=== PATIENT | female | born 1945 | race Caucasian/White ===

== ENCOUNTER 2018-07-12 18:03 | Inpatient (IN) | payer MEDICARE, MEDICAID ==
[~2018-07-12] VITALS: Ht 160 cm; Wt 63.0 kg
--- NOTE | 2018-07-12 18:06 | NUR ---
Hx pneumonia recently and on levaquin. fever, body aches, chills. NEB TREATMENT GIVEN PER EMS WITH [facility].
[2018-07-12] MEDS ORDERED: normal saline 1000ML IV soln IVB ONE (18:20)
[2018-07-12 18:53] LABS: BASOPHILS % (AUTO) 0.1 % (0-1); EOSINOPHILS % (AUTO) 0 % (0-6); HEMATOCRIT 40.3 % (35.0-45.0); HEMOGLOBIN 13.8 g/dl (12.0-16.0); LYMPHOCYTES # (AUTO) 1.2 X10'3 (1.1-4.8); LYMPHOCYTES % (AUTO) 22.2 % (21-51); MEAN CORPUSCULAR HEMOGLOBIN 31.2 PG (27.0-31.0); MEAN CORPUSCULAR HGB CONC 34.3 g/dL (33.0-36.5); MEAN CORPUSCULAR VOLUME 91.1 FL (78-98); MONOCYTES # (AUTO) 0.1 X10'3 (0-0.9); NEUTROPHILS # (AUTO) 4.3 X10'3 (1.8-7.7); NEUTROPHILS % (AUTO) 75.7 % (42-75); PLATELET COUNT 142 X10'3 (140-440); RED BLOOD COUNT 4.43 X10'6 (4.20-5.60); RED CELL DISTRIBUTION WIDTH 14.1 % (11.5-14.5); WHITE BLOOD COUNT 5.6 X10'3 (4.5-11.0)
[2018-07-12 18:57] LABS: ALANINE AMINOTRANSFERASE 14 U/L (12-78); ALBUMIN 3.4 G/DL (3.4-5.0); ALKALINE PHOSPHATASE 81 IU/L (46-116); ANION GAP 12 (8-16); ASPARTATE AMINO TRANSFERASE 15 U/L (10-37); BILIRUBIN,TOTAL 0.6 MG/DL (0.1-1.0); BLOOD UREA NITROGEN 13 MG/DL (7-18); BUN/CREATININE RATIO 13.4 (6.6-38.0); CALCIUM 9.4 MG/DL (8.5-10.1); CHLORIDE 101 MMOL/L (99-107); CREATININE 0.97 MG/DL (0.40-0.90); GLUCOSE 129 MG/DL (70-104); POTASSIUM 3.9 MMOL/L (3.5-5.1); SODIUM 138 MMOL/L (135-145); TOTAL CARBON DIOXIDE 24.9 MMOL/L (24-32); TOTAL PROTEIN 6.8 G/DL (6.4-8.2); eGFR 56 ML/MIN
--- NOTE | 2018-07-12 18:57 | NUR ---
JOVANNY dc'd a flu swab due to a negative result prior to today per the patient.
[2018-07-12 19:03] LABS: PARTIAL THROMBOPLASTIN TIME 25 SECONDS (22-32); PROTHROMBIN TIME 10.4 SECONDS (9.0-12.0)
[2018-07-12] MEDS ORDERED: FENT1PAT13 TOP (19:21)
[2018-07-12] MEDS ORDERED: TRAZ-219 PO (19:21)
[2018-07-12] MEDS ORDERED: LISI40TA4 PO (19:21)
[2018-07-12] MEDS ORDERED: LEVO500T2 PO (19:21)
[2018-07-12] MEDS ORDERED: PER10325T PO (19:21)
[2018-07-12] MEDS ORDERED: HYDR-4070 PO (19:21)
[2018-07-12] MEDS ORDERED: PRED5TAB PO (19:21)
[2018-07-12] MEDS ORDERED: TRAZ-218 PO (19:21)
[2018-07-12] MEDS ORDERED: LEVO75TA PO (19:21)
[2018-07-12] MEDS ORDERED: ATOR10TA87 PO (19:21)
--- NOTE | 2018-07-12 19:23 | NUR ---
Pt refused to have the flu swab done.
[2018-07-12 19:52] LABS: CLARITY,URINE CLEAR (Clear); COLOR,URINE YELLOW (Yellow); GLUCOSE, URINE NEGATIVE (Neg); KETONES,URINE NEGATIVE (Neg); LEUKOCYTE ESTERASE ,URINE SMALL (Neg); NITRITES, URINE NEGATIVE (Neg); OCCULT BLOOD,URINE NEGATIVE (Neg); PH,URINE 8.5 (4.8-8.0); PROTEIN,URINE NEGATIVE (Neg); UROBILINOGEN,URINE 0.2 E.U/dL (0.2-1.0)
[2018-07-12 20:17] LABS: UA COLLECTION TYPE CLN CATCH MIDSTREAM
[2018-07-12 20:42] LABS: RBC,URINE NONE SEEN /HPF (0-2)
[2018-07-12 20:43] LABS: BACTERIA,URINE FEW /HPF (Neg); MUCUS STRANDS NONE SEEN /LPF (Neg); SQUAMOUS EPITHELIAL CELL,UR FEW /LPF (FEW); YEAST FEW /HPF (NEGATIVE)
[2018-07-12] MEDS ORDERED: acetaminophen 325mg tablet PO PRN (22:40)
[2018-07-12] MEDS ORDERED: CefTRIAXone 2gm/D5W 50ml 50 ML IV ONE (22:40)
[2018-07-12] MEDS ORDERED: mag hydrox/Alum hydrox/simeth 30ml oral suspension PO PRN (22:40)
[2018-07-12] MEDS ORDERED: ondansetron/PF 4mg/2ml inj IV PRN (22:40)
[2018-07-12] MEDS ORDERED: magnesium hydroxide 30ml (MOM) UD suspension PO PRN (22:40)
[2018-07-12] MEDS ORDERED: azithromycin 250mg tablet PO ONE (22:55)
[2018-07-12] MEDS: normal saline 1000ml 1,000 ML IV SCH (23:12)
[2018-07-12 23:20] LABS: D-DIMER 4.52 MG/L FEU (0-0.50)
[2018-07-12] MEDS ORDERED: FENTANYL CADD WASTE DOCUMENT MC ONE (23:20)
[2018-07-13] VITALS: BP 129/72
[2018-07-13] MEDS ORDERED: traZODone 150mg tablet PO ONE (00:25)
[2018-07-13] MEDS: normal saline 1000ml 1,000 ML IV SCH ×3 (00:51→20:31)
[2018-07-13 05:22] LABS: ALANINE AMINOTRANSFERASE 11 U/L (12-78); ALBUMIN 2.8 G/DL (3.4-5.0); ALKALINE PHOSPHATASE 63 IU/L (46-116); ANION GAP 7 (8-16); ASPARTATE AMINO TRANSFERASE 13 U/L (10-37); BILIRUBIN,TOTAL 0.4 MG/DL (0.1-1.0); BLOOD UREA NITROGEN 16 MG/DL (7-18); BUN/CREATININE RATIO 19.5 (6.6-38.0); CALCIUM 8.6 MG/DL (8.5-10.1); CHLORIDE 104 MMOL/L (99-107); CREATININE 0.82 MG/DL (0.40-0.90); GLUCOSE 85 MG/DL (70-104); POTASSIUM 3.4 MMOL/L (3.5-5.1); SODIUM 140 MMOL/L (135-145); TOTAL CARBON DIOXIDE 29.5 MMOL/L (24-32); TOTAL PROTEIN 5.7 G/DL (6.4-8.2); eGFR 68 ML/MIN
[2018-07-13 05:55] LABS: BASOPHILS % (AUTO) 0.4 % (0-1); EOSINOPHILS % (AUTO) 0.4 % (0-6); HEMATOCRIT 34.5 % (35.0-45.0); HEMOGLOBIN 11.7 g/dl (12.0-16.0); LYMPHOCYTES # (AUTO) 2.4 X10'3 (1.1-4.8); LYMPHOCYTES % (AUTO) 37.4 % (21-51); MEAN CORPUSCULAR HEMOGLOBIN 31.3 PG (27.0-31.0); MEAN CORPUSCULAR VOLUME 92.1 FL (78-98); MEAN PLATELET VOLUME 8.6 FL (7.4-10.4); MONOCYTES # (AUTO) 0.5 X10'3 (0-0.9); MONOCYTES % (AUTO) 7.3 % (2-12); NEUTROPHILS # (AUTO) 3.5 X10'3 (1.8-7.7); NEUTROPHILS % (AUTO) 54.5 % (42-75); PLATELET COUNT 125 X10'3 (140-440); RED BLOOD COUNT 3.74 X10'6 (4.20-5.60); RED CELL DISTRIBUTION WIDTH 14.1 % (11.5-14.5); WHITE BLOOD COUNT 6.4 X10'3 (4.5-11.0)
--- NOTE | 2018-07-13 06:10 | NUR ---
Patient in room [facility]. I have received report from PIYUSH Adams and had the opportunity to ask questions and assume patient care.
[2018-07-13 06:30] VITALS: BP 104/63
--- NOTE | 2018-07-13 06:36 | NUR ---
Problems reprioritized. Patient report given, questions answered & plan of care reviewed with Alisia RN. Patient had just returned from restroom, appears in no distress.
--- NOTE | 2018-07-13 07:40 | NUR ---
Dr Chaves notified of decreased BP ie 104/63 & has hydralazine 50mg & lisinopril 40mg RX'd. Requested to hold both meds. Awaiting response.
[2018-07-13] MEDS ORDERED: magnesium 2GM in 50ml NS 50 ML IV PRN (07:45)
[2018-07-13] MEDS ORDERED: magnesium 4gm in 100ml NS 100 ML IV PRN ×2 (07:45→10:00)
[2018-07-13] MEDS ORDERED: potassium Cl 40MEQ/NS 500ml 500 ML IV PRN ×4 (07:45→10:00)
[2018-07-13] MEDS ORDERED: magnesium Cl slow-release 64mg tablet PO PRN ×2 (07:45→10:00)
[2018-07-13] MEDS ORDERED: potassium Cl 20 mEq SR tablet PO PRN ×2 (07:45→10:00)
[2018-07-13] MEDS: hydrALAZINE 25 MG tablet PO SCH ×2 (07:52→20:11)
[2018-07-13] MEDS: atorvastatin 10mg tablet PO SCH (08:00)
[2018-07-13] MEDS: levoTHYROXINE 75mcg tablet PO SCH (08:00)
[2018-07-13] MEDS ORDERED: lisinopril 20mg tablet PO SCH (08:00)
[2018-07-13] MEDS: predniSONE 5mg tablet PO SCH (08:00)
[2018-07-13] MEDS: potassium Cl 20 mEq SR tablet PO PRN ×4 (08:01→20:12)
[2018-07-13] MEDS: heparin, porcine 5000 units/ml vial SQ SCH ×2 (08:02→20:13)
[2018-07-13 08:03] VITALS: BP 146/68
[2018-07-13] MEDS ORDERED: iohexol 350MG/ML 100ml bottle IV ONE (10:25)
[2018-07-13] MEDS: ipratropium/albuterol 3ml nebule NEB SCH ×4 (11:00→23:06)
[2018-07-13 11:30] VITALS: BP 129/61
[2018-07-13] MEDS: azithromycin 250mg tablet PO SCH (14:19)
--- NOTE | 2018-07-13 18:05 | NUR ---
Problems reprioritized. Patient report given, questions answered & plan of care reviewed with Sagrario RN.
[2018-07-13 19:30] VITALS: BP 165/77
[2018-07-13] MEDS: lactobacillus rhamnosus 10,000 MMU CELLS/CAPSULE PO SCH (20:10)
[2018-07-13] MEDS: CefTRIAXone/D5W-Rocephin 1gm 50 ML IV SCH (20:13)
[2018-07-13] MEDS: oxyCODONE/APAP 10/325mg tablet PO PRN (20:19)
[2018-07-13] MEDS ORDERED: non-formulary drug (Trazodone HCl 1 TAB) PO SCH (21:00)
[2018-07-13] MEDS ORDERED: traZODone 50mg tablet PO SCH (21:00)
[2018-07-13] MEDS ORDERED: fentaNYL 100MCG/hour patch.TD72 TD SCH (22:50)
[2018-07-14] VITALS: BP 113/53
[2018-07-14] MEDS: ipratropium/albuterol 3ml nebule NEB SCH ×4 (02:58→14:30)
[2018-07-14 05:15] LABS: BASOPHILS % (AUTO) 0.3 % (0-1); EOSINOPHILS % (AUTO) 0.7 % (0-6); HEMATOCRIT 32.3 % (35.0-45.0); HEMOGLOBIN 10.8 g/dl (12.0-16.0); LYMPHOCYTES # (AUTO) 2.3 X10'3 (1.1-4.8); LYMPHOCYTES % (AUTO) 45.5 % (21-51); MEAN CORPUSCULAR HGB CONC 33.3 g/dL (33.0-36.5); MEAN CORPUSCULAR VOLUME 93.3 FL (78-98); MEAN PLATELET VOLUME 8.4 FL (7.4-10.4); MONOCYTES # (AUTO) 0.4 X10'3 (0-0.9); MONOCYTES % (AUTO) 7.8 % (2-12); NEUTROPHILS # (AUTO) 2.3 X10'3 (1.8-7.7); NEUTROPHILS % (AUTO) 45.7 % (42-75); PLATELET COUNT 100 X10'3 (140-440); RED BLOOD COUNT 3.46 X10'6 (4.20-5.60); RED CELL DISTRIBUTION WIDTH 14.4 % (11.5-14.5)
[2018-07-14 05:25] LABS: ALANINE AMINOTRANSFERASE 11 U/L (12-78); ALBUMIN 2.6 G/DL (3.4-5.0); ALKALINE PHOSPHATASE 56 IU/L (46-116); ANION GAP 8 (8-16); ASPARTATE AMINO TRANSFERASE 10 U/L (10-37); BILIRUBIN,TOTAL 0.3 MG/DL (0.1-1.0); BLOOD UREA NITROGEN 18 MG/DL (7-18); BUN/CREATININE RATIO 19.4 (6.6-38.0); CALCIUM 8.3 MG/DL (8.5-10.1); CHLORIDE 106 MMOL/L (99-107); CREATININE 0.93 MG/DL (0.40-0.90); GLUCOSE 109 MG/DL (70-104); MAGNESIUM 1.3 MG/DL (1.5-2.4); PHOSPHORUS 4.2 MG/DL (2.3-4.5); POTASSIUM 3.8 MMOL/L (3.5-5.1); SODIUM 140 MMOL/L (135-145); TOTAL CARBON DIOXIDE 25.8 MMOL/L (24-32); TOTAL PROTEIN 5.3 G/DL (6.4-8.2); eGFR 59 ML/MIN
--- NOTE | 2018-07-14 06:30 | NUR ---
report given to PIYUSH Emerson
--- NOTE | 2018-07-14 06:30 | NUR ---
Patient in room [facility]. I have received report from Pat RN and had the opportunity to ask questions and assume patient care.
[2018-07-14 07:15] VITALS: BP 125/72
[2018-07-14] MEDS: heparin, porcine 5000 units/ml vial SQ SCH (08:00)
[2018-07-14] MEDS ORDERED: lisinopril 20mg tablet PO SCH (08:00)
[2018-07-14] MEDS: lactobacillus rhamnosus 10,000 MMU CELLS/CAPSULE PO SCH (08:01)
[2018-07-14] MEDS: CefTRIAXone/D5W-Rocephin 1gm 50 ML IV SCH (08:01)
[2018-07-14] MEDS: predniSONE 5mg tablet PO SCH (08:03)
[2018-07-14] MEDS: atorvastatin 10mg tablet PO SCH (08:03)
[2018-07-14] MEDS: oxyCODONE/APAP 10/325mg tablet PO PRN ×2 (08:03→15:29)
[2018-07-14] MEDS: hydrALAZINE 25 MG tablet PO SCH (08:03)
[2018-07-14] MEDS: levoTHYROXINE 75mcg tablet PO SCH (08:03)
[2018-07-14] MEDS: normal saline 1000ml 1,000 ML IV SCH (08:06)
[2018-07-14] MEDS ORDERED: aspirin 81mg tab.chew PO SCH (08:30)
[2018-07-14 10:38] VITALS: BP_SYST 160
[2018-07-14] MEDS: azithromycin 250mg tablet PO SCH (15:20)
[2018-07-14] MEDS ORDERED: PRED10TA23 PO (15:33)
[2018-07-14] MEDS ORDERED: AZI25OT PO (15:33)
[2018-07-14] MEDS ORDERED: LACT1CAP26 PO (15:33)
[2018-07-14] MEDS ORDERED: ASPI-1265 PO (15:33)
[2018-07-14] MEDS ORDERED: CEFD300C3 PO (15:33)
[2018-07-14] MEDS ORDERED: ALBU8.5H8 INH (15:34)
[2018-07-14] MEDS ORDERED: BUDE10.22 INH (15:34)
[2018-07-14] MEDS ORDERED: PANT40TA4 PO (15:35)
--- NOTE | 2018-07-14 16:48 | NUR ---
Student documentation: I have reviewed and agree with all interventions, assessments performed and documented by Vicki ABRAMS . Student Medication Administration: For this medication-pass time frame, all medication were reviewed, dispensed, administered and documented per hospital policy by Vicki ABRAMS.
[2018-07-15] MEDS ORDERED: OXYB5TAB29 PO (12:57)
== END 2018-07-14 17:32 | disposition home health service (06) | DRG 193 ==
LOC: ER 18:04 → ED HOLD 22:39 → SUR 3N 23:45
PROVIDERS: ADMIT Internal Medicine; ATTEND Family Medicine
PROC: B32T1ZZ Computerized Tomography (CT Scan) of Left Pulmonary Artery using Low Osmolar Contrast (ICD-10-PCS; principal; 2018-07-13)
PROC: B3201ZZ Computerized Tomography (CT Scan) of Thoracic Aorta using Low Osmolar Contrast (ICD-10-PCS; 2018-07-13)
PROC: B32S1ZZ Computerized Tomography (CT Scan) of Right Pulmonary Artery using Low Osmolar Contrast (ICD-10-PCS; 2018-07-13)
DX: J18.9 Pneumonia, unspecified organism (principal); J96.91 Respiratory failure, unspecified with hypoxia; J44.1 Chronic obstructive pulmonary disease with (acute) exacerbation; J44.0 Chronic obstructive pulmonary disease with (acute) lower respiratory infection; I48.0 Paroxysmal atrial fibrillation; E87.6 Hypokalemia; E03.9 Hypothyroidism, unspecified; I10 Essential (primary) hypertension; G89.4 Chronic pain syndrome; K27.9 Peptic ulcer, site unspecified, unspecified as acute or chronic, without hemorrhage or perforation; M54.9 Dorsalgia, unspecified; Z66 Do not resuscitate; F17.200 Nicotine dependence, unspecified, uncomplicated; Z87.11 Personal history of peptic ulcer disease; Z88.8 Allergy status to other drugs, medicaments and biological substances; Z90.49 Acquired absence of other specified parts of digestive tract; Z85.038 Personal history of other malignant neoplasm of large intestine
CPT/HCPCS: 36415; 71045; 71275; 80053; 81001; 83605; 83735; 83880; 84100; 84145; 85025; 85379; 85610; 85730; 87040; 87070; 87088; 93005; 93970; 94640; 94668; 94760; 99285; G0378; J0696; J1644; J7030; J7512; Q9967

== ENCOUNTER 2018-07-15 10:18 | Emergency (ER) | payer MEDICARE, MEDICAID ==
[~2018-07-15] VITALS: Ht 160 cm; Wt 59.1 kg
[~2018-07-15 10:18] MED LIST: ALBU8.5H8 INH; ASPI-1265 PO; ATOR10TA87 PO; AZI25OT PO; BUDE10.22 INH; CEFD300C3 PO; FENT1PAT13 TOP; HYDR-4070 PO; LACT1CAP26 PO; LEVO75TA PO; LISI40TA4 PO; PANT40TA4 PO; PER10325T PO; PRED10TA23 PO; TRAZ-218 PO; TRAZ-219 PO
[2018-07-15 11:12] LABS: BASOPHILS % (AUTO) 0.6 % (0-1); EOSINOPHILS # (AUTO) 0.2 X10'3 (0-0.9); HEMATOCRIT 40.2 % (35.0-45.0); HEMOGLOBIN 13.4 g/dl (12.0-16.0); LYMPHOCYTES # (AUTO) 1.4 X10'3 (1.1-4.8); MEAN CORPUSCULAR HEMOGLOBIN 30.1 PG (27.0-31.0); MEAN CORPUSCULAR HGB CONC 33.4 g/dL (33.0-36.5); MEAN CORPUSCULAR VOLUME 90.1 FL (78-98); MEAN PLATELET VOLUME 8.8 FL (7.4-10.4); MONOCYTES # (AUTO) 0.4 X10'3 (0-0.9); MONOCYTES % (AUTO) 5.4 % (2-12); NEUTROPHILS # (AUTO) 5.7 X10'3 (1.8-7.7); PLATELET COUNT 127 X10'3 (140-440); RED BLOOD COUNT 4.46 X10'6 (4.20-5.60); RED CELL DISTRIBUTION WIDTH 14.8 % (11.5-14.5); WHITE BLOOD COUNT 7.7 X10'3 (4.5-11.0)
[2018-07-15 11:29] LABS: CLARITY,URINE CLEAR (Clear); COLOR,URINE STRAW (Yellow); GLUCOSE, URINE NEGATIVE (Neg); KETONES,URINE NEGATIVE (Neg); LEUKOCYTE ESTERASE ,URINE SMALL (Neg); NITRITES, URINE NEGATIVE (Neg); OCCULT BLOOD,URINE TRACE-INTACT (Neg); PH,URINE 6.5 (4.8-8.0); PROTEIN,URINE NEGATIVE (Neg); UROBILINOGEN,URINE 0.2 E.U/dL (0.2-1.0)
[2018-07-15 11:31] LABS: UA COLLECTION TYPE NON-SPECIFIED
[2018-07-15 11:34] LABS: BACTERIA,URINE FEW /HPF (Neg); RBC,URINE 0-2 /HPF (0-2); SQUAMOUS EPITHELIAL CELL,UR FEW /LPF (FEW); WBC,URINE 0-4 /HPF (0-4)
[2018-07-15 11:36] LABS: ALANINE AMINOTRANSFERASE 12 U/L (12-78); ALBUMIN 3.6 G/DL (3.4-5.0); ALKALINE PHOSPHATASE 75 IU/L (46-116); ANION GAP 8 (8-16); ASPARTATE AMINO TRANSFERASE 14 U/L (10-37); BILIRUBIN,TOTAL 0.5 MG/DL (0.1-1.0); BLOOD UREA NITROGEN 12 MG/DL (7-18); BUN/CREATININE RATIO 16.4 (6.6-38.0); CALCIUM 9.4 MG/DL (8.5-10.1); CHLORIDE 99 MMOL/L (99-107); CREATININE 0.73 MG/DL (0.40-0.90); GLUCOSE 103 MG/DL (70-104); POTASSIUM 3.9 MMOL/L (3.5-5.1); SODIUM 137 MMOL/L (135-145); TOTAL CARBON DIOXIDE 29.9 MMOL/L (24-32); TOTAL PROTEIN 7.1 G/DL (6.4-8.2); eGFR 78 ML/MIN
--- NOTE | 2018-07-15 12:24 | NUR ---
relieving RN for break, pt is resting quietly on gurney, resp even and unlabored
[2018-07-15] MEDS ORDERED: ipratropium/albuterol 3ml nebule NEB ONE (12:30)
[2018-07-15] MEDS ORDERED: dexamethasone 4mg/ml inj IM ONE (12:30)
[2018-07-15 12:44] LABS: TROPONIN I < 0.04 NG/ML (0.0-0.05)
[2018-07-15] MEDS ORDERED: oxybutynin 5mg tablet PO ONE (12:55)
[2018-07-15] MEDS ORDERED: OXYB5TAB29 PO (12:57)
[2018-07-15 13:15] VITALS: BP 162/83
== END 2018-07-15 13:16 | disposition home or self-care (01) ==
LOC: ER 10:19
DX: R35.0 Frequency of micturition (principal); R53.83 Other fatigue; I10 Essential (primary) hypertension; J44.9 Chronic obstructive pulmonary disease, unspecified; G89.29 Other chronic pain; Z86.73 Personal history of transient ischemic attack (TIA), and cerebral infarction without residual deficits; Z98.890 Other specified postprocedural states; Z85.038 Personal history of other malignant neoplasm of large intestine; Z88.5 Allergy status to narcotic agent; Z79.82 Long term (current) use of aspirin; Z79.899 Other long term (current) drug therapy
CPT/HCPCS: 36415; 71046; 80053; 81001; 83880; 84484; 85025; 87088; 93005; 94640; 94760; 96372; 99284; J1100

== ENCOUNTER 2023-03-20 12:34 | Day surgery (SDC) | payer BC, MEDICAID ==
[~2023-03-20] VITALS: Ht 157.5 cm; Wt 45.5 kg
[~2023-03-20 12:34] MED LIST changes: +ALBU8.5H17 INH; -ALBU8.5H8 INH; -CEFD300C3 PO; +LISI40TA13 PO; -LISI40TA4 PO; +OXYB5TAB29 PO; -PANT40TA4 PO; +PANT40TA54 PO; -PRED10TA23 PO; -TRAZ-218 PO; -TRAZ-219 PO; +TRAZ-251 PO; +TRAZ-256 PO
[2023-03-20] MEDS ORDERED: DILT-117 PO (13:01)
[2023-03-20] MEDS ORDERED: HYDR-4069 PO (13:01)
[2023-03-20] MEDS ORDERED: TRAZ150T78 PO (13:01)
[2023-03-20] MEDS ORDERED: DULO60CA59 PO (13:01)
[2023-03-20] MEDS ORDERED: MAGN400O6 PO (13:01)
[2023-03-20] MEDS ORDERED: SPIR25TA PO (13:01)
[2023-03-20] MEDS ORDERED: BISA10SU60 RC (13:01)
[2023-03-20] MEDS ORDERED: ONDA-103 PO (13:01)
[2023-03-20] MEDS ORDERED: ACET325T55 PO (13:01)
[2023-03-20] MEDS ORDERED: PARO20TA6 PO (13:01)
[2023-03-20] MEDS ORDERED: NA P230E (13:01)
[2023-03-20] MEDS ORDERED: ATOR20TA66 PO (13:01)
[2023-03-20] MEDS ORDERED: HYDR-3964 PO (13:01)
[2023-03-20 13:05] VITALS: BP_DIAS 151; PULSE 139; RESP 14; TEMP 109
[2023-03-20] MEDS ORDERED: fentaNYL/PF 50MCG/1 ML 2ML syringe ONE (13:26)
[2023-03-20] MEDS ORDERED: MIDAZolam 1 MG/ML 5ML VIAL ONE (13:26)
[2023-03-20 14:15] VITALS: BP 136/115; PULSE 138; RESP 20; O2SAT 100
[2023-03-20 14:25] VITALS: BP 142/117; PULSE 138; RESP 18; O2SAT 99
[2023-03-20 14:35] VITALS: BP 141/119; PULSE 136; RESP 18; O2SAT 96
[2023-03-20 14:45] VITALS: BP 152/119; PULSE 136; RESP 16; O2SAT 96
== END 2023-03-20 15:45 | disposition home or self-care (01) ==
LOC: GI LAB 12:34
PROVIDERS: ATTEND Internal Medicine Gastroenterology
DX: K92.1 Melena (principal); D12.4 Benign neoplasm of descending colon; D12.3 Benign neoplasm of transverse colon; K57.30 Diverticulosis of large intestine without perforation or abscess without bleeding; K64.8 Other hemorrhoids; Z85.038 Personal history of other malignant neoplasm of large intestine; Z79.890 Hormone replacement therapy; Z79.899 Other long term (current) drug therapy; Z88.8 Allergy status to other drugs, medicaments and biological substances
CPT/HCPCS: 45385; 99152; J2250; J3010; J7030; Z7512; 88305; A4615; C1889